=== PATIENT | female | born 1940 | race Caucasian/White ===

== ENCOUNTER 2016-09-10 16:46 | Inpatient (IN) ==
[2016-09-10] MEDS: Ipratropium/Albuterol Neb 3 ML IH SCH ×2 (18:55→21:36)
[2016-09-10] MEDS: Nystatin Cream 15 GM TUBE TP SCH (21:39)
[2016-09-10] MEDS: Cefdinir 300 MG CAPSULE PO SCH (21:39)
[2016-09-10] MEDS: Gabapentin 300 MG CAPSULE PO SCH (21:39)
--- NOTE | 2016-09-10 23:17 | Internal Med History&Physical ---
Date of Encounter: 09/10/16 Time of Encounter: 23:10 Assessment and Plan (1) Sepsis Current visit: No Status: Acute Improved continue Omnicef Qualifiers: Sepsis type: sepsis due to unspecified organism Qualified Code(s): A41.9 - Sepsis, unspecified organism (2) Unsteady gait Current visit: Yes Status: Acute We will get PT OT , bedrest and up with assistance as tolerated (3) Failure to thrive in adult Current visit: No Status: Chronic With general weakness and unsteady gait will continue to encourage activity consult PT, OT, social service, nutrition (4) DM type 2 (diabetes mellitus, type 2) Current visit: Yes Status: Acute Follow-up lab work to see a well-controlled continue proper diet Qualifiers: Diabetes mellitus complication status: with neurologic complications Diabetes mellitus complication detail: with unspecified neuropathy Diabetes mellitus chief information security officer insulin use: unspecified chief information security officer insulin use status Qualified Code(s): E11.40 - Type 2 diabetes mellitus with diabetic neuropathy, unspecified (5) CHF (congestive heart failure) Current visit: Yes Status: Acute Eyes shortness of breath currently is fair continue spironolactone, Lasix Qualifiers: Congestive heart failure type: unspecified congestive heart failure type Congestive heart failure chronicity: unspecified congestive heart failure chronicity Qualified Code(s): I50.9 - Heart failure, unspecified (6) Atrial fibrillation with slow ventricular response Current visit: No Status: Resolved Stable continue observing continue Plavix (7) Pancytopenia Current visit: No Status: Resolved Follow-up CBC (8) Dementia Current visit: Yes Status: Acute Dementia got worse with a septic shock and encephalopathy, continue Namenda, Qualifiers: Dementia type: unspecified type Dementia behavioral disturbance: with behavioral disturbance Qualified Code(s): F03.91 - Unspecified dementia with behavioral disturbance (9) Hallucinations Current visit: Yes Status: Acute History of dementia we will continue the olanzapine Internal Medicine - H&P: HPI Chief complaint: Generally weak with unsteady gait Admitted From: Hospital to Hospital Transfer Plans for Post Hospital Care: Home History of present illness: Ms. Irwin is a 76 year old female with a history of congestive heart failure coronary artery disease stents 2, asthma, fibrillation, INDIRA, osteoarthritis, or clots. presented after being discharged from [facility]. She was admitted there on the she was discharged on the with diagnosis of septic shock multi- organ failure, atrial fibrillation with slow ventricular response, pancytopenia , DM 2, coronary artery disease, failure to thrive adult. She was stabilized and evaluated by therapy and discharged here with Omnicef and rehabilitation her granddaughter who is with her and probably does not believe that she has dementia even though it is on her list. The patient was a poor historian, the granddaughter was only slightly. Information was mainly obtained from her records. Granddaughter did say she is basically back to her baseline size and order Mini-Mental Status exam so we can see where she is on Namenda. The patient denies any chest pain or shortness breath nausea vomiting diarrhea headache or dizziness this time. She reports feeling weak fatigue and family notices some blood in her stool with a history of hemorrhoids per granddaughter. Rest review of symptoms were essentially negative understanding the context dementia. Answer questions and addressed concerns. Past Med Surg Social Fam HX - Past Medical History Medical history: arthritis, asthma, atrial fibrillation (Slow ventricular response), cancer, CHF, coronary artery disease, DVT (History), dementia, diabetes, GERD, other (Failure to thrive, reported hemorrhoids, left eyelid legally blind, hard of hearing, pancytopenia, history of septic shock) Psychiatric history: anxiety, other (Hallucinations) - Past Surgical History Surgical History: angioplasty/stent, appendectomy, cataract (Bilateral), hip replacement (Bilateral), TYE/BSO, other (T&A) - Social History Smoking Status: Former smoker Alcohol use: none Drug use: other (Caffeine Mountain Dew to bottle today, Because caffeine is a stimulant and makes one feel a boost of energy by tapping into ones reserve energy, it can lead to anxiety and panic attacks. When used routiely, it interferes with deep sleep, so the reserve energy isn't being replaced effectively which leads to tiredness, depression, higher risk of infection. I recommend patients gives up daily use.) Current living situation: With Family Activity Level: Mostly sedentary - Family History Father Living Status: (Pancreas burst) Mother Living Status: (Pancreatic cancer) Internal Medicine - H&P: Meds Albuterol Sulfate [Albuterol Inhaler] 2 puff IH Q6HR 09/06/16 [History] Clopidogrel [Plavix] 75 mg PO DAILY 09/06/16 [History] Dexilant 60 unit PO DAILY 09/06/16 [History] Furosemide [Lasix] 40 mg PO DAILY 09/06/16 [History] Gabapentin [Neurontin] 300 mg PO TID 09/06/16 [History] Ipratropium/Albuterol Neb [Duoneb] 1 aerosol IH Q6H 09/06/16 [History] Ondansetron [Zuplenz] 4 mg PO QAM 09/06/16 [History] Spironolactone [Aldactone] 50 mg PO DAILY 09/06/16 [History] Cholecalciferol (Vitamin D3) [Vitamin D3] 1,000 unit PO DAILY 09/07/16 [History] Lactulose 10 gm PO DAILY 09/07/16 [History] Memantine [Namenda] 5 mg PO HS 09/07/16 [History] Nystatin Cream [Mycostatin Cream] 1 appl TP TID 09/07/16 [History] Omeprazole [PriLOSEC] 20 mg PO DAILY 09/07/16 [History] Cefdinir [Omnicef] 300 mg PO BID #4 capsule 09/10/16 [Rx] LORazepam [Ativan] 0.5 mg PO TID PRN #20 09/10/16 [Rx] OLANZapine [Zyprexa] 15 mg PO DAILY #20 09/10/16 [Rx] Oxycodone HCl 5 mg PO Q4H PRN #20 09/10/16 [Rx] Zinc Sulfate 220 mg PO DAILY #30 capsule 09/10/16 [Rx] Allergies Sulfa (Sulfonamide Antibiotics) Allergy (Verified 09/06/16 19:52) Anaphylaxis aspirin [ASA] Adverse Reaction (Verified 09/06/16 19:36) Nausea Erythromycin Base Adverse Reaction (Verified 09/06/16 19:52) Hives tramadol Adverse Reaction (Verified 09/06/16 19:36) Nausea All Systems PM: A 10-system review of systems was performed and is negative for pertinent findings except as documented above in the HPI. - Constitutional Vitals: Temp Pulse Resp BP Pulse Ox 97.7 F 93 16 128/64 96 09/10/16 18:37 09/10/16 18:37 09/10/16 18:57 09/10/16 18:37 09/10/16 18:57 - Head Head exam: Present: atraumatic, normocephalic - Eye Eye exam: Present: PERRL, conjuntiva pink, sclera anicteric Pupils: Present: PERRL Additional comments: Left eye appeared lazy, - Neck Neck exam general surgery: Present: supple, trachea midline. Absent: lymphadenopathy - Respiratory Respiratory exam: Present: CTAB. Absent: accessory muscle use, rales, rhonchi, wheezes - Cardiovascular Cardiovascular exam: Present: RRR, +S1, +S2. Absent: diastolic murmur, gallop, rubs, systolic murmur - GI/Abdominal GI/Abdominal exam: Present: normal bowel sounds, soft, no peritoneal signs. Absent: distended, tenderness - Extremities Exam Extremities exam: Present: warm. Absent: calf tenderness, cyanotic, pedal edema - Neurological Exam Neurological exam: Absent: facial droop, speech deficit Additional comments: Poor historian - Skin Skin exam: Present: dry, intact
[2016-09-11] MEDS: Ipratropium/Albuterol Neb 3 ML IH SCH ×4 (05:36→22:55)
[2016-09-11 06:47] LABS: Basophils % 0.2 %; Eosinophils # 0.1 K/mcL (0.0-0.6); Hematocrit 34.5 % (35.3-44.9); Hemoglobin 11.4 g/dL (11.5-15.4); Immature Granulocytes % 0.2 % (0-4); Lymphocytes % 36.1 %; Mean Corpuscular Hemoglobin 33.2 pg (28.0-33.3); Mean Corpuscular Volume 100.6 fL (83.0-100.0); Mean Platelet Volume 10.6 fL (9.4-12.4); Monocytes # 0.4 K/mcL (0.0-1.3); Monocytes % 9.2 %; Neutrophils # 2.1 K/mcL (1.6-8.9); Platelet Count 138 K/mcL (140-400); Red Blood Count 3.43 M/mcL (3.82-4.97); Red Cell Distribution Width 15.8 % (11.5-14.5); Segmented Neutrophils % 52.3 %
[2016-09-11 06:51] LABS: Lymphocytes # 1.4 K/mcL (0.6-4.6)
[2016-09-11 07:03] LABS: INR 1.4; Prothrombin Time 15.1 Seconds (9.4-12.1)
[2016-09-11 07:04] LABS: BUN/Creatinine Ratio 15 (6-26); Blood Urea Nitrogen 11 mg/dL (7-20); Calcium 8.5 mg/dL (8.6-10.8); Carbon Dioxide 18 mEq/L (19-29); Chloride 115 mEq/L (98-109); Glucose 79 mg/dL (70-99); Osmolality,Calculated 290 (280-300); Potassium 4.3 mEq/L (3.5-4.5); Sodium 141 mEq/L (136-145); eGFR For African Americans > 60 (> 60); eGFR For Non-African Americans > 60 (> 60)
[2016-09-11 07:06] LABS: Activated Partial Thrombo Time 33.5 Seconds (26.0-36.0)
[2016-09-11] MEDS ORDERED: Ondansetron ODT 4 MG TAB.RAPDIS PO SCH (09:00)
[2016-09-11] MEDS ORDERED: DEXILANT 60 MG PO SCH (09:00)
[2016-09-11] MEDS ORDERED: Ondansetron ODT 4 MG TAB.RAPDIS PO PRN (15:50)
[2016-09-11] MEDS: Ondansetron ODT 4 MG TAB.RAPDIS PO PRN ×2 (16:14→20:02)
[2016-09-11 17:04] LABS: Hemoglobin A1C 4.8 %
[2016-09-11] MEDS: Spironolactone 25 MG TABLET PO SCH (17:29)
[2016-09-11] MEDS: Furosemide 40 MG TABLET PO SCH (17:29)
[2016-09-11] MEDS: Gabapentin 300 MG CAPSULE PO SCH ×3 (17:32→20:08)
[2016-09-11] MEDS: OLANZapine 5 MG TAB.RAPDIS PO SCH (17:34)
[2016-09-11] MEDS: Zinc Sulfate 220 MG CAPSULE PO SCH (17:35)
[2016-09-11] MEDS: Cholecalciferol (D-3) 1,000 UNIT TABLET PO SCH (17:35)
[2016-09-11] MEDS: Cefdinir 300 MG CAPSULE PO SCH ×2 (17:36→20:09)
[2016-09-11] MEDS: Lactulose Oral Soln 20 GM/30 ML UDC PO SCH (17:36)
[2016-09-11] MEDS: Nystatin Cream 15 GM TUBE TP SCH ×3 (17:36→20:09)
[2016-09-11] MEDS: *HR* OxyCODONE Immed Rel 5 MG TABLET PO PRN (17:39)
[2016-09-12] MEDS: Ipratropium/Albuterol Neb 3 ML IH SCH ×2 (04:48→09:55)
[2016-09-12] MEDS: *HR* OxyCODONE Immed Rel 5 MG TABLET PO PRN ×2 (06:35→22:15)
[2016-09-12 06:57] LABS: Basophils % 0.3 %; Hematocrit 30.6 % (35.3-44.9); Hemoglobin 10.2 g/dL (11.5-15.4); Immature Granulocytes % 0.6 % (0-4); Lymphocytes # 1.3 K/mcL (0.6-4.6); Lymphocytes % 35.8 %; Mean Corpuscular HGB Conc 33.3 g/dL (31.6-35.5); Mean Corpuscular Hemoglobin 33.4 pg (28.0-33.3); Mean Corpuscular Volume 100.3 fL (83.0-100.0); Mean Platelet Volume 10.5 fL (9.4-12.4); Monocytes # 0.4 K/mcL (0.0-1.3); Monocytes % 11.7 %; Neutrophils # 1.9 K/mcL (1.6-8.9); Platelet Count 139 K/mcL (140-400); Red Blood Count 3.05 M/mcL (3.82-4.97); Red Cell Distribution Width 15.9 % (11.5-14.5); Segmented Neutrophils % 51.6 %
[2016-09-12 07:00] LABS: INR 1.5; Prothrombin Time 16.1 Seconds (9.4-12.1)
[2016-09-12 07:03] LABS: Activated Partial Thrombo Time 32.7 Seconds (26.0-36.0)
[2016-09-12 07:09] LABS: BUN/Creatinine Ratio 14 (6-26); Blood Urea Nitrogen 11 mg/dL (7-20); Calcium 8.2 mg/dL (8.6-10.8); Carbon Dioxide 19 mEq/L (19-29); Chloride 114 mEq/L (98-109); Glucose 85 mg/dL (70-99); Osmolality,Calculated 291 (280-300); Potassium 3.8 mEq/L (3.5-4.5); Sodium 141 mEq/L (136-145); eGFR For African Americans > 60 (> 60); eGFR For Non-African Americans > 60 (> 60)
[2016-09-12] MEDS: Lactulose Oral Soln 20 GM/30 ML UDC PO SCH (09:28)
[2016-09-12] MEDS: Nystatin Cream 15 GM TUBE TP SCH ×3 (09:29→22:16)
[2016-09-12] MEDS: Gabapentin 300 MG CAPSULE PO SCH ×3 (09:30→22:16)
[2016-09-12] MEDS: Cefdinir 300 MG CAPSULE PO SCH ×2 (09:30→22:15)
[2016-09-12] MEDS: Spironolactone 25 MG TABLET PO SCH (09:32)
[2016-09-12] MEDS: Furosemide 40 MG TABLET PO SCH (09:32)
[2016-09-12] MEDS: OLANZapine 5 MG TAB.RAPDIS PO SCH (09:34)
[2016-09-12] MEDS: Zinc Sulfate 220 MG CAPSULE PO SCH (09:51)
[2016-09-12] MEDS: Cholecalciferol (D-3) 1,000 UNIT TABLET PO SCH (09:52)
[2016-09-12] MEDS: Ondansetron ODT 4 MG TAB.RAPDIS PO PRN (14:51)
[2016-09-12] MEDS: *HR* LORazepam 0.5 MG TABLET PO PRN (16:27)
[2016-09-13] MEDS ORDERED: *HR* Digoxin 0.25 MG TABLET PO STA (06:57)
[2016-09-13 07:25] LABS: Basophils % 0.1 %; Hematocrit 36.6 % (35.3-44.9); Hemoglobin 11.9 g/dL (11.5-15.4); Immature Granulocytes % 0.7 % (0-4); Lymphocytes # 2.2 K/mcL (0.6-4.6); Lymphocytes % 23.6 %; Mean Corpuscular HGB Conc 32.5 g/dL (31.6-35.5); Mean Corpuscular Hemoglobin 33.4 pg (28.0-33.3); Mean Corpuscular Volume 102.8 fL (83.0-100.0); Mean Platelet Volume 10.4 fL (9.4-12.4); Monocytes # 1.3 K/mcL (0.0-1.3); Monocytes % 13.7 %; Neutrophils # 5.9 K/mcL (1.6-8.9); Platelet Count 190 K/mcL (140-400); Red Blood Count 3.56 M/mcL (3.82-4.97); Red Cell Distribution Width 17.2 % (11.5-14.5); Segmented Neutrophils % 61.9 %
[2016-09-13] MEDS ORDERED: *HR* Propranolol 1 MG/ML VIAL IVP ONE (07:47)
[2016-09-13] MEDS ORDERED: *HR* Adenosine 6 MG/2 ML VIAL IVP ONE (07:48)
[2016-09-13] MEDS ORDERED: 0.9 % Sodium Chloride 1,000 ML ONE (08:26)
--- NOTE | 2016-09-13 10:16 | Internal Med Progress Note ---
Date of Encounter: 09/13/16 Time of Encounter: 10:00 - Assessment and plan (1) Sepsis Current Visit: No Status: Acute Assessment and plan: September 13. Review of records show her pro-calcitonin was 1.32 which is in the intermediate range on 09/08/2016. Her WBC was subnormal but is now returned to normal range. There has not been documented a left shift on the differential. I will discontinue Ceftin. Qualifiers: Sepsis type: sepsis due to unspecified organism Qualified Code(s): A41.9 - Sepsis, unspecified organism (2) DM type 2 (diabetes mellitus, type 2) Current Visit: Yes Status: Acute Assessment and plan: September 13. Uncertainty of accuracy of diagnosis since hemoglobin A1c is 4.8% . Qualifiers: Diabetes mellitus complication status: with neurologic complications Diabetes mellitus complication detail: with unspecified neuropathy Diabetes mellitus shelter insulin use: unspecified director long term care insulin use status Qualified Code(s): E11.40 - Type 2 diabetes mellitus with diabetic neuropathy, unspecified (3) Atrial fibrillation Current Visit: Yes Status: Chronic Assessment and plan: September 13. She has now converted to NSR. We will start low-dose Toprol-XL. Qualifiers: Atrial fibrillation type: paroxysmal Qualified Code(s): I48.0 - Paroxysmal atrial fibrillation (4) Chronic low back pain Current Visit: Yes Status: Chronic Assessment and plan: September 13. Will start low-dose OxyContin and continue with oxycodone IR when necessary Qualifiers: Back pain laterality: unspecified Qualified Code(s): M54.5 - Low back pain ; G89.29 - Other chronic pain (5) Hypomagnesemia Current Visit: Yes Status: Acute Assessment and plan: September 13. Magnesium level was 1.2 in 09/08/2016. We will recheck in a.m. - Subjective Interval history: September 13. She had SVT earlier this morning with some complaints of chest heaviness when her heart rate was approximately 170. She received Lanoxin, Adenocard, and Inderal. She is now in normal sinus rhythm. She has history of atrial fibrillation and had an echocardiogram done at [facility] prior to transfer to [facility] swing bed. I reviewed the results. She has minimal dyspnea at this time. She does complain of chronic low back pain and states she has been on oxycodone 3-4 times daily at home prior to hospitalizations. - Constitutional Vitals: Temp Pulse Resp BP Pulse Ox 98.5 F 109 28 133/9 94 L 09/13/16 06:44 09/13/16 08:31 09/13/16 06:44 09/13/16 08:31 09/13/16 08:31 Exam: She is resting comfortably in bed and appears in no acute distress. Heart is regular rate approximate 104/m now. Lungs show no wheezes or crackles. Extremities show no edema. She seems to be a fair to good historian. Internal Medicine: Result - Labs CBC & Chem 7: 09/13/16 07:19 09/12/16 05:13 Labs: Short CBC 09/13/16 Range/Units 07:19 WBC 9.5 D (4.3-11.1) K/mcL Hgb 11.9 D (11.5-15.4) g/dL Hct 36.6 (35.3-44.9) % Plt Count 190 (140-400) K/mcL Neutrophils # 5.9 (1.6-8.9) K/mcL - ABG Interpretation ABG results: PT/INR, D-dimer PT 16.1 Seconds (9.4-12.1) H 09/12/16 05:13 - Impressions Impressions Chest X-Ray 09/13/16 08:34 IMPRESSION: Poorly expanded lungs. No definite acute abnormality. D/ / Vik Mclain MD / Vik Mclain MD Interpreting Provider: Vik Mclain MD Consult Discharge Plan - Plan Referrals: NO,PCP [Primary Care Provider] - 1 week
[2016-09-13] MEDS ORDERED: *HR* OxyCODONE ER (12 HR) 10 MG TABLET PO SCH (10:55)
--- NOTE | 2016-09-13 11:29 | Electrocardiograph Report ---
[facility] Test Date: 2016-09-13 Pat Name: Chante Irwin Department: [id number] Room: [facility] Gender: F Emblem Fuser Tender: [id number] : 1940 Requested By: Oleg Khan Order Number: [id number] Reading MD: Seble Edmond Measurements Intervals [place] Rate: 172 P: SC: 0 QRS: 23 QRSD: 66 T: 256 QT: 241 QTc: 334 Interpretive Statements SUPRAVENTRICULAR TACHYCARDIA NONSPECIFIC ST \T\ T-WAVE ABNORMALITY Electronically Signed On 09-13-16 11:28:15 EST by Seble Edmond
[2016-09-13] MEDS: Lactulose Oral Soln 20 GM/30 ML UDC PO SCH (11:57)
[2016-09-13] MEDS: Nystatin Cream 15 GM TUBE TP SCH ×3 (11:57→20:50)
[2016-09-13] MEDS: Furosemide 40 MG TABLET PO SCH (12:30)
[2016-09-13] MEDS: Cholecalciferol (D-3) 1,000 UNIT TABLET PO SCH (12:37)
[2016-09-13] MEDS: OLANZapine 5 MG TAB.RAPDIS PO SCH (12:37)
[2016-09-13] MEDS: Gabapentin 100 MG CAPSULE PO SCH ×2 (17:37→20:49)
[2016-09-13] MEDS: *HR* OxyCODONE ER (12 HR) 10 MG TABLET PO SCH (20:50)
[2016-09-14] MEDS: *HR* LORazepam 0.5 MG TABLET PO PRN (04:20)
[2016-09-14 07:51] LABS: Basophils % 0.2 %; Eosinophils # 0.1 K/mcL (0.0-0.6); Eosinophils % 2.8 %; Hematocrit 34.4 % (35.3-44.9); Hemoglobin 11.1 g/dL (11.5-15.4); Immature Granulocytes % 0.6 % (0-4); Lymphocytes # 1.5 K/mcL (0.6-4.6); Lymphocytes % 31.2 %; Mean Corpuscular HGB Conc 32.3 g/dL (31.6-35.5); Mean Corpuscular Hemoglobin 33.2 pg (28.0-33.3); Mean Platelet Volume 10.3 fL (9.4-12.4); Monocytes # 0.6 K/mcL (0.0-1.3); Monocytes % 11.6 %; Neutrophils # 2.5 K/mcL (1.6-8.9); Platelet Count 112 K/mcL (140-400); Red Blood Count 3.34 M/mcL (3.82-4.97); Red Cell Distribution Width 17.2 % (11.5-14.5); Segmented Neutrophils % 53.6 %
[2016-09-14] MEDS: Furosemide 40 MG TABLET PO SCH (07:55)
[2016-09-14] MEDS: Spironolactone 25 MG TABLET PO SCH (07:55)
[2016-09-14] MEDS: *HR* OxyCODONE ER (12 HR) 10 MG TABLET PO SCH ×2 (07:56→22:09)
[2016-09-14] MEDS: Gabapentin 100 MG CAPSULE PO SCH ×3 (07:56→22:08)
[2016-09-14] MEDS: OLANZapine 5 MG TAB.RAPDIS PO SCH (07:57)
[2016-09-14] MEDS: Lactulose Oral Soln 20 GM/30 ML UDC PO SCH (08:07)
[2016-09-14] MEDS: Cholecalciferol (D-3) 1,000 UNIT TABLET PO SCH (08:08)
[2016-09-14 09:08] LABS: BUN/Creatinine Ratio 16 (6-26); Blood Urea Nitrogen 14 mg/dL (7-20); Calcium 8.1 mg/dL (8.6-10.8); Carbon Dioxide 20 mEq/L (19-29); Chloride 108 mEq/L (98-109); Glucose 69 mg/dL (70-99); Magnesium 1.3 mg/dL (1.6-2.6); Osmolality,Calculated 283 (280-300); Potassium 4.4 mEq/L (3.5-4.5); Sodium 137 mEq/L (136-145); eGFR For African Americans > 60 (> 60); eGFR For Non-African Americans > 60 (> 60)
[2016-09-14] MEDS: Nystatin Cream 15 GM TUBE TP SCH ×3 (16:16→22:09)
--- NOTE | 2016-09-14 18:00 | Internal Med Progress Note ---
Date of Encounter: 09/14/16 Time of Encounter: 17:50 - Assessment and plan (1) Sepsis Current Visit: No Status: Acute Assessment and plan: September 13. Review of records show her pro-calcitonin was 1.32 which is in the intermediate range on 09/08/2016. Her WBC was subnormal but is now returned to normal range. There has not been documented a left shift on the differential. I will discontinue Ceftin. September 14. Remains stable off antibiotics. WBC was normal with no left shift seen on differential. Qualifiers: Sepsis type: sepsis due to unspecified organism Qualified Code(s): A41.9 - Sepsis, unspecified organism (2) DM type 2 (diabetes mellitus, type 2) Current Visit: Yes Status: Acute Assessment and plan: September 13. Uncertainty of accuracy of diagnosis since hemoglobin A1c is 4.8% . Qualifiers: Diabetes mellitus complication status: with neurologic complications Diabetes mellitus complication detail: with unspecified neuropathy Diabetes mellitus dozer operator insulin use: unspecified dozer operator insulin use status Qualified Code(s): E11.40 - Type 2 diabetes mellitus with diabetic neuropathy, unspecified (3) Atrial fibrillation Current Visit: Yes Status: Chronic Assessment and plan: September 13. She has now converted to NSR. We will start low-dose Toprol-XL. September 14. Remains in NSR. Continue Toprol. Qualifiers: Atrial fibrillation type: paroxysmal Qualified Code(s): I48.0 - Paroxysmal atrial fibrillation (4) Chronic low back pain Current Visit: Yes Status: Chronic Assessment and plan: September 13. Will start low-dose OxyContin and continue with oxycodone IR when necessary September 14. Continue with oxycodone IR and will give scheduled Tylenol. Qualifiers: Back pain laterality: unspecified Qualified Code(s): M54.5 - Low back pain ; G89.29 - Other chronic pain (5) Hypomagnesemia Current Visit: Yes Status: Acute Assessment and plan: September 13. Magnesium level was 1.2 in 09/08/2016. We will recheck in a.m. September 14. Magnesium level was low at 1.3. Will order supplemental magnesium. - Subjective Interval history: September 13. She had SVT earlier this morning with some complaints of chest heaviness when her heart rate was approximately 170. She received Lanoxin, Adenocard, and Inderal. She is now in normal sinus rhythm. She has history of atrial fibrillation and had an echocardiogram done at [facility] prior to transfer to [facility] swing bed. I reviewed the results. She has minimal dyspnea at this time. She does complain of chronic low back pain and states she has been on oxycodone 3-4 times daily at home prior to hospitalizations. September 14. She has no new complaints. She has had no recurrence of SVT. She became confused after using OxyContin so it was discontinued. - Constitutional Vitals: Temp Pulse Resp BP Pulse Ox 98.4 F 99 17 132/78 99 09/14/16 06:50 09/14/16 08:09 09/14/16 08:09 09/14/16 08:09 09/14/16 08:09 Exam: She is lying in bed resting comfortable. Her heart is regular rate 108/m. Lungs are clear anteriorly. Extremities show trace edema bilaterally. I note weight increased to 62.505 kg. I reviewed her medications and lab results. Internal Medicine: Result - Labs CBC & Chem 7: 09/14/16 07:31 09/14/16 07:31 Labs: Short CBC 09/14/16 Range/Units 07:31 WBC 4.7 D (4.3-11.1) K/mcL Hgb 11.1 L (11.5-15.4) g/dL Hct 34.4 L (35.3-44.9) % Plt Count 112 L (140-400) K/mcL Neutrophils # 2.5 (1.6-8.9) K/mcL BMP 09/14/16 07:31 Sodium 137 Potassium 4.4 Chloride 108 Carbon Dioxide 20 BUN 14 Creatinine 0.86 Glucose 69 L Calcium 8.1 L - ABG Interpretation ABG results: PT/INR, D-dimer PT 16.1 Seconds (9.4-12.1) H 09/12/16 05:13 - VTE Documentation of Mechanical Device: Intermittent pneumatic compression device Consult Discharge Plan - Plan Referrals: NO,PCP [Primary Care Provider] - 1 week
[2016-09-14] MEDS: *HR* OxyCODONE Immed Rel 5 MG TABLET PO PRN (18:56)
[2016-09-14] MEDS: Metoprolol XL (24 HR) Succ 25 MG TAB.ER.24H PO SCH (18:56)
[2016-09-14] MEDS: Magnesium Oxide 400 MG TABLET PO SCH (22:07)
[2016-09-15] MEDS: OLANZapine 5 MG TAB.RAPDIS PO SCH (08:04)
[2016-09-15] MEDS: Gabapentin 100 MG CAPSULE PO SCH ×3 (08:04→21:26)
[2016-09-15] MEDS: Cholecalciferol (D-3) 1,000 UNIT TABLET PO SCH (08:05)
[2016-09-15] MEDS: Bumetanide 1 MG TABLET PO SCH (08:05)
[2016-09-15] MEDS: Ondansetron ODT 4 MG TAB.RAPDIS PO PRN ×2 (08:05→17:15)
[2016-09-15] MEDS: *HR* OxyCODONE ER (12 HR) 10 MG TABLET PO SCH ×2 (08:06→21:27)
[2016-09-15] MEDS: Magnesium Oxide 400 MG TABLET PO SCH ×2 (08:06→21:28)
[2016-09-15] MEDS: Spironolactone 25 MG TABLET PO SCH (08:06)
[2016-09-15] MEDS: Metoprolol XL (24 HR) Succ 25 MG TAB.ER.24H PO SCH (08:06)
[2016-09-15] MEDS: Lactulose Oral Soln 20 GM/30 ML UDC PO SCH (08:12)
[2016-09-15] MEDS: *HR* OxyCODONE Immed Rel 5 MG TABLET PO PRN (13:17)
[2016-09-15] MEDS: Nystatin Cream 15 GM TUBE TP SCH ×3 (13:44→21:47)
[2016-09-15] MEDS: *HR* LORazepam 0.5 MG TABLET PO PRN (23:21)
[2016-09-16] MEDS: Gabapentin 100 MG CAPSULE PO SCH ×3 (08:17→21:12)
[2016-09-16] MEDS: Bumetanide 1 MG TABLET PO SCH (08:17)
[2016-09-16] MEDS: Metoprolol XL (24 HR) Succ 25 MG TAB.ER.24H PO SCH (08:18)
[2016-09-16] MEDS: *HR* OxyCODONE ER (12 HR) 10 MG TABLET PO SCH (08:18)
[2016-09-16] MEDS: Spironolactone 25 MG TABLET PO SCH (08:18)
[2016-09-16] MEDS: OLANZapine 5 MG TAB.RAPDIS PO SCH (08:19)
[2016-09-16] MEDS: Ondansetron ODT 4 MG TAB.RAPDIS PO PRN (08:20)
[2016-09-16] MEDS: Magnesium Oxide 400 MG TABLET PO SCH ×2 (08:20→21:12)
[2016-09-16] MEDS: Cholecalciferol (D-3) 1,000 UNIT TABLET PO SCH (08:20)
[2016-09-16] MEDS: Lactulose Oral Soln 20 GM/30 ML UDC PO SCH (08:27)
[2016-09-16] MEDS: Nystatin Cream 15 GM TUBE TP SCH ×3 (11:13→21:12)
--- NOTE | 2016-09-16 14:26 | Internal Med Progress Note ---
Date of Encounter: 09/16/16 Time of Encounter: 14:15 - Assessment and plan (1) Sepsis Current Visit: No Status: Acute Assessment and plan: September 13. Review of records show her pro-calcitonin was 1.32 which is in the intermediate range on 09/08/2016. Her WBC was subnormal but is now returned to normal range. There has not been documented a left shift on the differential. I will discontinue Ceftin. September 14. Remains stable off antibiotics. WBC was normal with no left shift seen on differential. September 16. We will recheck CBC in a.m. Qualifiers: Sepsis type: sepsis due to unspecified organism Qualified Code(s): A41.9 - Sepsis, unspecified organism (2) DM type 2 (diabetes mellitus, type 2) Current Visit: Yes Status: Acute Assessment and plan: September 13. Uncertainty of accuracy of diagnosis since hemoglobin A1c is 4.8% . Qualifiers: Diabetes mellitus complication status: with neurologic complications Diabetes mellitus complication detail: with unspecified neuropathy Diabetes mellitus long-term insulin use: unspecified long-term insulin use status Qualified Code(s): E11.40 - Type 2 diabetes mellitus with diabetic neuropathy, unspecified (3) Atrial fibrillation Current Visit: Yes Status: Chronic Assessment and plan: September 13. She has now converted to NSR. We will start low-dose Toprol-XL. September 14. Remains in NSR. Continue Toprol. September 16. We will increase Toprol dose to improve blood pressure Qualifiers: Atrial fibrillation type: paroxysmal Qualified Code(s): I48.0 - Paroxysmal atrial fibrillation (4) Chronic low back pain Current Visit: Yes Status: Chronic Assessment and plan: September 13. Will start low-dose OxyContin and continue with oxycodone IR when necessary September 14. Continue with oxycodone IR and will give scheduled Tylenol. September 16. We will discontinue OxyContin and continue scheduled Tylenol and prn oxycodone IR Qualifiers: Back pain laterality: unspecified Qualified Code(s): M54.5 - Low back pain ; G89.29 - Other chronic pain (5) Hypomagnesemia Current Visit: Yes Status: Acute Assessment and plan: September 13. Magnesium level was 1.2 in 09/08/2016. We will recheck in a.m. September 14. Magnesium level was low at 1.3. Will order supplemental magnesium. September 16. We will check magnesium level and other labs in a.m. (6) Lethargy Current Visit: Yes Status: Acute Assessment and plan: September 16. Will decrease Zyprexa and discontinue OxyContin. - Subjective Interval history: September 13. She had SVT earlier this morning with some complaints of chest heaviness when her heart rate was approximately 170. She received Lanoxin, Adenocard, and Inderal. She is now in normal sinus rhythm. She has history of atrial fibrillation and had an echocardiogram done at [facility] prior to transfer to [facility] bed. I reviewed the results. She has minimal dyspnea at this time. She does complain of chronic low back pain and states she has been on oxycodone 3-4 times daily at home prior to hospitalizations. September 14. She has no new complaints. She has had no recurrence of SVT. She became confused after using OxyContin so it was discontinued. September 16. She has no new complaints. The staff reports she becomes more lethargic on a predictable basis as the day wears on. She denies significant pain or dyspnea at the present time. - Constitutional Vitals: Temp Pulse Resp BP Pulse Ox 97.1 F L 81 18 133/61 93 L 09/16/16 07:01 09/16/16 07:01 09/16/16 07:01 09/16/16 07:01 09/16/16 07:01 Exam: She is lethargic but does awaken and answer questions appropriately. Her heart is regular rate approximately 88/m. Lungs are clear anteriorly. Extremities show 1-2 + edema bilaterally. Reviewed her medications and lab results. Internal Medicine: Result - Labs CBC & Chem 7: 09/14/16 07:31 09/14/16 07:31 - ABG Interpretation ABG results: PT/INR, D-dimer PT 16.1 Seconds (9.4-12.1) H 09/12/16 05:13 - VTE Documentation of Mechanical Device: Intermittent pneumatic compression device Consult Discharge Plan - Plan Referrals: NO,PCP [Primary Care Provider] - 1 week
[2016-09-16] MEDS ORDERED: Ondansetron 4 MG/2 ML VIAL IVP PRN (14:31)
[2016-09-16] MEDS: *HR* OxyCODONE Immed Rel 5 MG TABLET PO PRN (21:13)
[2016-09-17 06:37] LABS: Basophils % 0.3 %; Hemoglobin 10.5 g/dL (11.5-15.4); Immature Granulocytes % 0.3 % (0-4); Lymphocytes % 30.7 %; Mean Corpuscular HGB Conc 33.9 g/dL (31.6-35.5); Mean Corpuscular Hemoglobin 34.4 pg (28.0-33.3); Mean Corpuscular Volume 101.6 fL (83.0-100.0); Mean Platelet Volume 10.2 fL (9.4-12.4); Monocytes # 0.4 K/mcL (0.0-1.3); Monocytes % 11.6 %; Neutrophils # 1.9 K/mcL (1.6-8.9); Platelet Count 100 K/mcL (140-400); Red Blood Count 3.05 M/mcL (3.82-4.97); Red Cell Distribution Width 17.1 % (11.5-14.5); Segmented Neutrophils % 57.1 %
[2016-09-17 06:57] LABS: BUN/Creatinine Ratio 11 (6-26); Blood Urea Nitrogen 10 mg/dL (7-20); Calcium 7.7 mg/dL (8.6-10.8); Carbon Dioxide 30 mEq/L (19-29); Chloride 102 mEq/L (98-109); Glucose 94 mg/dL (70-99); Magnesium 1.2 mg/dL (1.6-2.6); Osmolality,Calculated 287 (280-300); Potassium 3.3 mEq/L (3.5-4.5); Sodium 139 mEq/L (136-145); eGFR For African Americans > 60 (> 60); eGFR For Non-African Americans > 60 (> 60)
[2016-09-17] MEDS: Lactulose Oral Soln 20 GM/30 ML UDC PO SCH (11:11)
[2016-09-17] MEDS: Bumetanide 1 MG TABLET PO SCH (11:12)
[2016-09-17] MEDS: Spironolactone 25 MG TABLET PO SCH (11:13)
[2016-09-17] MEDS: Cholecalciferol (D-3) 1,000 UNIT TABLET PO SCH (11:13)
[2016-09-17] MEDS: OLANZapine 5 MG TAB.RAPDIS PO SCH (11:14)
[2016-09-17] MEDS: Magnesium Oxide 400 MG TABLET PO SCH ×2 (11:14→23:13)
[2016-09-17] MEDS: Metoprolol XL (24 HR) Succ 25 MG TAB.ER.24H PO SCH (11:15)
[2016-09-17] MEDS: Gabapentin 100 MG CAPSULE PO SCH ×3 (11:15→23:13)
[2016-09-17] MEDS: Nystatin Cream 15 GM TUBE TP SCH ×3 (11:20→23:22)
[2016-09-17] MEDS: *HR* OxyCODONE Immed Rel 5 MG TABLET PO PRN ×2 (17:19→23:20)
[2016-09-18] MEDS: Gabapentin 100 MG CAPSULE PO SCH ×3 (10:31→21:06)
[2016-09-18] MEDS: Magnesium Oxide 400 MG TABLET PO SCH ×2 (10:31→21:06)
[2016-09-18] MEDS: Cholecalciferol (D-3) 1,000 UNIT TABLET PO SCH (10:32)
[2016-09-18] MEDS: OLANZapine 5 MG TAB.RAPDIS PO SCH (10:33)
[2016-09-18] MEDS: Bumetanide 1 MG TABLET PO SCH (10:34)
[2016-09-18] MEDS: Metoprolol XL (24 HR) Succ 25 MG TAB.ER.24H PO SCH (10:36)
[2016-09-18] MEDS: Spironolactone 25 MG TABLET PO SCH (10:36)
[2016-09-18] MEDS: Lactulose Oral Soln 20 GM/30 ML UDC PO SCH (10:37)
[2016-09-18] MEDS: Nystatin Cream 15 GM TUBE TP SCH ×3 (10:39→21:17)
--- NOTE | 2016-09-18 12:10 | Internal Med Progress Note ---
Date of Encounter: 09/18/16 Time of Encounter: 12:00 - Assessment and plan (1) Sepsis Current Visit: No Status: Acute Assessment and plan: September 13. Review of records show her pro-calcitonin was 1.32 which is in the intermediate range on 09/08/2016. Her WBC was subnormal but is now returned to normal range. There has not been documented a left shift on the differential. I will discontinue Ceftin. September 14. Remains stable off antibiotics. WBC was normal with no left shift seen on differential. September 16. We will recheck CBC in a.m. September 18. WBC was subnormal yesterday. We will recheck labs in a.m.. Qualifiers: Sepsis type: sepsis due to unspecified organism Qualified Code(s): A41.9 - Sepsis, unspecified organism (2) DM type 2 (diabetes mellitus, type 2) Current Visit: Yes Status: Acute Assessment and plan: September 13. Uncertainty of accuracy of diagnosis since hemoglobin A1c is 4.8% . Qualifiers: Diabetes mellitus complication status: with neurologic complications Diabetes mellitus complication detail: with unspecified neuropathy Diabetes mellitus intermediate frame tender insulin use: unspecified intermediate frame tender insulin use status Qualified Code(s): E11.40 - Type 2 diabetes mellitus with diabetic neuropathy, unspecified (3) Atrial fibrillation Current Visit: Yes Status: Chronic Assessment and plan: September 13. She has now converted to NSR. We will start low-dose Toprol-XL. September 14. Remains in NSR. Continue Toprol. September 16. We will increase Toprol dose to improve blood pressure September 18. Continue higher dose Toprol. Qualifiers: Atrial fibrillation type: paroxysmal Qualified Code(s): I48.0 - Paroxysmal atrial fibrillation (4) Chronic low back pain Current Visit: Yes Status: Chronic Assessment and plan: September 13. Will start low-dose OxyContin and continue with oxycodone IR when necessary September 14. Continue with oxycodone IR and will give scheduled Tylenol. September 16. We will discontinue OxyContin and continue scheduled Tylenol and prn oxycodone IR September 18. Continue scheduled Tylenol and prn oxycodone IR Qualifiers: Back pain laterality: unspecified Qualified Code(s): M54.5 - Low back pain ; G89.29 - Other chronic pain (5) Hypomagnesemia Current Visit: Yes Status: Acute Assessment and plan: September 13. Magnesium level was 1.2 in 09/08/2016. We will recheck in a.m. September 14. Magnesium level was low at 1.3. Will order supplemental magnesium. September 16. We will check magnesium level and other labs in a.m. September 18. We will recheck magnesium level in a.m. (6) Lethargy Current Visit: Yes Status: Acute Assessment and plan: September 16. Will decrease Zyprexa and discontinue OxyContin. September 18. Significantly improved. (7) Hypokalemia Current Visit: Yes Status: Acute Assessment and plan: September 18. Will give supplemental potassium and recheck labs in a.m. (8) Anemia Current Visit: Yes Status: Acute Assessment and plan: September 18. We will check anemia testing in a.m. Qualifiers: Anemia type: unspecified type Qualified Code(s): D64.9 - Anemia, unspecified - Subjective Interval history: September 13. She had SVT earlier this morning with some complaints of chest heaviness when her heart rate was approximately 170. She received Lanoxin, Adenocard, and Inderal. She is now in normal sinus rhythm. She has history of atrial fibrillation and had an echocardiogram done at [facility] prior to transfer to [facility] bed. I reviewed the results. She has minimal dyspnea at this time. She does complain of chronic low back pain and states she has been on oxycodone 3-4 times daily at home prior to hospitalizations. September 14. She has no new complaints. She has had no recurrence of SVT. She became confused after using OxyContin so it was discontinued. September 16. She has no new complaints. The staff reports she becomes more lethargic on a predictable basis as the day wears on. She denies significant pain or dyspnea at the present time. September 18. She has no new complaints - Constitutional Vitals: Temp Pulse Resp BP Pulse Ox 99.0 F 82 16 101/68 93 L 09/18/16 07:21 09/18/16 07:21 09/18/16 07:21 09/18/16 07:21 09/18/16 07:21 Exam: She is lying in bed resting comfortable. She is more awake and responsive. Her affect is bright and cheerful. I reviewed her medications and lab results. Internal Medicine: Result - Labs CBC & Chem 7: 09/17/16 06:04 09/17/16 06:04 - ABG Interpretation ABG results: PT/INR, D-dimer PT 16.1 Seconds (9.4-12.1) H 09/12/16 05:13 - VTE Documentation of Mechanical Device: Intermittent pneumatic compression device Consult Discharge Plan - Plan Referrals: NO,PCP [Primary Care Provider] - 1 week
[2016-09-18] MEDS: Potassium Chloride Elixir 20 MEQ/15 ML UDC PO SCH (21:05)
[2016-09-18] MEDS: *HR* OxyCODONE Immed Rel 5 MG TABLET PO PRN (21:07)
[2016-09-19 06:08] LABS: Basophils % 0.2 %; Hematocrit 29.5 % (35.3-44.9); Hemoglobin 9.9 g/dL (11.5-15.4); Immature Granulocytes % 0.2 % (0-4); Lymphocytes # 1.4 K/mcL (0.6-4.6); Lymphocytes % 29.3 %; Mean Corpuscular HGB Conc 33.6 g/dL (31.6-35.5); Mean Corpuscular Hemoglobin 34.4 pg (28.0-33.3); Mean Corpuscular Volume 102.4 fL (83.0-100.0); Mean Platelet Volume 10.5 fL (9.4-12.4); Monocytes # 0.6 K/mcL (0.0-1.3); Monocytes % 12.1 %; Neutrophils # 2.7 K/mcL (1.6-8.9); Red Blood Count 2.88 M/mcL (3.82-4.97); Red Cell Distribution Width 17.5 % (11.5-14.5); Segmented Neutrophils % 58.2 %
[2016-09-19 06:10] LABS: Platelet Count 95 K/mcL (140-400)
[2016-09-19 06:31] LABS: BUN/Creatinine Ratio 12 (6-26); Blood Urea Nitrogen 10 mg/dL (7-20); Calcium 7.7 mg/dL (8.6-10.8); Carbon Dioxide 33 mEq/L (19-29); Chloride 100 mEq/L (98-109); Glucose 87 mg/dL (70-99); Magnesium 1.2 mg/dL (1.6-2.6); Osmolality,Calculated 288 (280-300); Potassium 3.4 mEq/L (3.5-4.5); Sodium 140 mEq/L (136-145); Uric Acid 7.4 mg/dL (2.6-6.0); eGFR For African Americans > 60 (> 60); eGFR For Non-African Americans > 60 (> 60)
[2016-09-19] MEDS ORDERED: Potassium Chloride Elixir 20 MEQ/15 ML UDC PO SCH (08:00)
[2016-09-19 08:19] LABS: % Iron Saturation 95 % (15-50); Iron 121 mcg/dL (50-170); Transferrin 91 mg/dL (180-382)
[2016-09-19] MEDS: Potassium Chloride Elixir 20 MEQ/15 ML UDC PO SCH ×2 (08:27→17:10)
[2016-09-19] MEDS: Cholecalciferol (D-3) 1,000 UNIT TABLET PO SCH (08:28)
[2016-09-19] MEDS: Gabapentin 100 MG CAPSULE PO SCH ×3 (08:28→22:15)
[2016-09-19] MEDS: Metoprolol XL (24 HR) Succ 25 MG TAB.ER.24H PO SCH (08:28)
[2016-09-19] MEDS: Spironolactone 25 MG TABLET PO SCH (08:29)
[2016-09-19] MEDS: Bumetanide 1 MG TABLET PO SCH (08:29)
[2016-09-19] MEDS: Magnesium Oxide 400 MG TABLET PO SCH ×2 (08:29→22:14)
[2016-09-19] MEDS: Lactulose Oral Soln 20 GM/30 ML UDC PO SCH (08:29)
[2016-09-19] MEDS: Nystatin Cream 15 GM TUBE TP SCH ×3 (08:30→22:16)
[2016-09-19] MEDS: OLANZapine 5 MG TAB.RAPDIS PO SCH (08:30)
[2016-09-19 08:41] LABS: Ferritin 298 ng/ml (5-204)
[2016-09-19] MEDS: *HR* OxyCODONE Immed Rel 5 MG TABLET PO PRN ×3 (08:42→22:14)
[2016-09-19 10:05] LABS: Folate 5.7 ng/mL (7.0-31.4)
[2016-09-20] MEDS: OLANZapine 5 MG TAB.RAPDIS PO SCH (09:32)
[2016-09-20] MEDS: Metoprolol XL (24 HR) Succ 25 MG TAB.ER.24H PO SCH (09:32)
[2016-09-20] MEDS: Cholecalciferol (D-3) 1,000 UNIT TABLET PO SCH (09:32)
[2016-09-20] MEDS: Spironolactone 25 MG TABLET PO SCH (09:32)
[2016-09-20] MEDS: Gabapentin 100 MG CAPSULE PO SCH ×3 (09:33→20:34)
[2016-09-20] MEDS: Magnesium Oxide 400 MG TABLET PO SCH ×2 (09:34→20:34)
[2016-09-20] MEDS: Bumetanide 1 MG TABLET PO SCH (09:35)
[2016-09-20] MEDS: Potassium Chloride Elixir 20 MEQ/15 ML UDC PO SCH ×2 (09:35→18:22)
[2016-09-20] MEDS: Lactulose Oral Soln 20 GM/30 ML UDC PO SCH (09:36)
[2016-09-20] MEDS: Ondansetron ODT 4 MG TAB.RAPDIS PO PRN (09:47)
[2016-09-20] MEDS: Nystatin Cream 15 GM TUBE TP SCH ×3 (13:37→20:35)
--- NOTE | 2016-09-20 15:06 | Internal Med Progress Note ---
Date of Encounter: 09/20/16 Time of Encounter: 14:50 - Assessment and plan (1) Sepsis Current Visit: No Status: Acute Assessment and plan: September 13. Review of records show her pro-calcitonin was 1.32 which is in the intermediate range on 09/08/2016. Her WBC was subnormal but is now returned to normal range. There has not been documented a left shift on the differential. I will discontinue Ceftin. September 14. Remains stable off antibiotics. WBC was normal with no left shift seen on differential. September 16. We will recheck CBC in a.m. September 18. WBC was subnormal yesterday. We will recheck labs in a.m.. September 20. WBC and differential are normal Qualifiers: Sepsis type: sepsis due to unspecified organism Qualified Code(s): A41.9 - Sepsis, unspecified organism (2) Atrial fibrillation Current Visit: Yes Status: Chronic Assessment and plan: September 13. She has now converted to NSR. We will start low-dose Toprol-XL. September 14. Remains in NSR. Continue Toprol. September 16. We will increase Toprol dose to improve blood pressure September 18. Continue higher dose Toprol. September 20. Remains in normal sinus rhythm. Blood pressures are better controlled. Continue present dose Toprol Qualifiers: Atrial fibrillation type: paroxysmal Qualified Code(s): I48.0 - Paroxysmal atrial fibrillation (3) Chronic low back pain Current Visit: Yes Status: Chronic Assessment and plan: September 13. Will start low-dose OxyContin and continue with oxycodone IR when necessary September 14. Continue with oxycodone IR and will give scheduled Tylenol. September 16. We will discontinue OxyContin and continue scheduled Tylenol and prn oxycodone IR September 18. Continue scheduled Tylenol and prn oxycodone IR Qualifiers: Back pain laterality: unspecified Qualified Code(s): M54.5 - Low back pain ; G89.29 - Other chronic pain (4) Hypomagnesemia Current Visit: Yes Status: Acute Assessment and plan: September 13. Magnesium level was 1.2 in 09/08/2016. We will recheck in a.m. September 14. Magnesium level was low at 1.3. Will order supplemental magnesium. September 16. We will check magnesium level and other labs in a.m. September 18. We will recheck magnesium level in a.m. September 20. Magnesium level remains low at 1.2. We will increase magnesium supplement and decrease Bumex and Aldactone. (5) Hypokalemia Current Visit: Yes Status: Acute Assessment and plan: September 18. Will give supplemental potassium and recheck labs in a.m. September 20. Improved. Continue supplemental potassium and reduce diuretic dose (6) Anemia Current Visit: Yes Status: Acute Assessment and plan: September 18. We will check anemia testing in a.m. September 20. Serum iron is normal at 121 with ferritin 298. B12 was elevated at 1154 and folate low at 5.7. We will give supplemental folate Qualifiers: Anemia type: unspecified type Qualified Code(s): D64.9 - Anemia, unspecified (7) Hyperuricemia Current Visit: Yes Status: Acute Assessment and plan: September 20. Uric acid level was elevated at 7.4%. Will start allopurinol. - Subjective Interval history: September 13. She had SVT earlier this morning with some complaints of chest heaviness when her heart rate was approximately 170. She received Lanoxin, Adenocard, and Inderal. She is now in normal sinus rhythm. She has history of atrial fibrillation and had an echocardiogram done at [facility] prior to transfer to [facility] bed. I reviewed the results. She has minimal dyspnea at this time. She does complain of chronic low back pain and states she has been on oxycodone 3-4 times daily at home prior to hospitalizations. September 14. She has no new complaints. She has had no recurrence of SVT. She became confused after using OxyContin so it was discontinued. September 16. She has no new complaints. The staff reports she becomes more lethargic on a predictable basis as the day wears on. She denies significant pain or dyspnea at the present time. September 18. She has no new complaints September 20. She has no new complaints. Lethargy has resolved. - Constitutional Vitals: Temp Pulse Resp BP Pulse Ox 99.1 F 64 18 115/78 96 09/20/16 06:48 09/20/16 13:14 09/20/16 13:14 09/20/16 13:14 09/20/16 13:14 Exam: She is lying in bed resting comfortably. Heart is regular without murmurs gallops or ectopics. Lungs are clear anteriorly. Extremities show no edema. I reviewed her medications and lab results. Internal Medicine: Result - Labs CBC & Chem 7: 09/19/16 05:40 09/19/16 05:40 - ABG Interpretation ABG results: PT/INR, D-dimer PT 16.1 Seconds (9.4-12.1) H 09/12/16 05:13 - VTE Documentation of Mechanical Device: Intermittent pneumatic compression device Consult Discharge Plan - Plan Referrals: NO,PCP [Primary Care Provider] - 1 week
[2016-09-20] MEDS: *HR* OxyCODONE Immed Rel 5 MG TABLET PO PRN ×2 (18:27→23:54)
[2016-09-21] MEDS: *HR* OxyCODONE Immed Rel 5 MG TABLET PO PRN ×3 (03:57→16:57)
[2016-09-21] MEDS: Folic Acid 1 MG TABLET PO SCH (10:26)
[2016-09-21] MEDS: Lactulose Oral Soln 20 GM/30 ML UDC PO SCH (10:26)
[2016-09-21] MEDS: Fluconazole 100 MG TABLET PO SCH (10:26)
[2016-09-21] MEDS: Potassium Chloride Elixir 20 MEQ/15 ML UDC PO SCH ×2 (10:26→16:57)
[2016-09-21] MEDS: Metoprolol XL (24 HR) Succ 25 MG TAB.ER.24H PO SCH (10:27)
[2016-09-21] MEDS: Spironolactone 25 MG TABLET PO SCH (10:27)
[2016-09-21] MEDS: OLANZapine 5 MG TAB.RAPDIS PO SCH (10:27)
[2016-09-21] MEDS: Bumetanide 1 MG TABLET PO SCH (10:27)
[2016-09-21] MEDS: Cholecalciferol (D-3) 1,000 UNIT TABLET PO SCH (10:27)
[2016-09-21] MEDS: Nystatin Cream 15 GM TUBE TP SCH ×3 (10:28→21:20)
[2016-09-21] MEDS: Magnesium Oxide 400 MG TABLET PO SCH ×3 (10:28→21:20)
[2016-09-21] MEDS: Gabapentin 100 MG CAPSULE PO SCH ×3 (10:28→21:20)
[2016-09-22] MEDS: Lactulose Oral Soln 20 GM/30 ML UDC PO SCH (08:10)
[2016-09-22] MEDS: Potassium Chloride Elixir 20 MEQ/15 ML UDC PO SCH ×2 (08:10→17:00)
[2016-09-22] MEDS: Gabapentin 100 MG CAPSULE PO SCH ×2 (08:11→14:07)
[2016-09-22] MEDS: OLANZapine 5 MG TAB.RAPDIS PO SCH (08:11)
[2016-09-22] MEDS: Fluconazole 100 MG TABLET PO SCH (08:11)
[2016-09-22] MEDS: Metoprolol XL (24 HR) Succ 25 MG TAB.ER.24H PO SCH (08:12)
[2016-09-22] MEDS: Spironolactone 25 MG TABLET PO SCH (08:12)
[2016-09-22] MEDS: Bumetanide 1 MG TABLET PO SCH (08:12)
[2016-09-22] MEDS: Cholecalciferol (D-3) 1,000 UNIT TABLET PO SCH (08:21)
[2016-09-22] MEDS: Folic Acid 1 MG TABLET PO SCH (08:21)
[2016-09-22] MEDS: Magnesium Oxide 400 MG TABLET PO SCH ×3 (08:21→22:04)
[2016-09-22] MEDS: Nystatin Cream 15 GM TUBE TP SCH ×2 (08:21→14:08)
[2016-09-22] MEDS: *HR* OxyCODONE Immed Rel 5 MG TABLET PO PRN ×2 (14:08→22:04)
[2016-09-23] MEDS: Gabapentin 100 MG CAPSULE PO SCH ×2 (04:41→10:03)
[2016-09-23] MEDS: Nystatin Cream 15 GM TUBE TP SCH ×3 (04:41→15:02)
[2016-09-23 06:27] VITALS: BP 101/51
[2016-09-23] MEDS: Lactulose Oral Soln 20 GM/30 ML UDC PO SCH (10:02)
[2016-09-23] MEDS: Potassium Chloride Elixir 20 MEQ/15 ML UDC PO SCH (10:03)
[2016-09-23] MEDS: Spironolactone 25 MG TABLET PO SCH (10:05)
[2016-09-23] MEDS: Bumetanide 1 MG TABLET PO SCH (10:05)
[2016-09-23] MEDS: Metoprolol XL (24 HR) Succ 25 MG TAB.ER.24H PO SCH (10:06)
[2016-09-23] MEDS: Fluconazole 100 MG TABLET PO SCH (10:07)
[2016-09-23] MEDS: *HR* OxyCODONE Immed Rel 5 MG TABLET PO PRN ×2 (10:07→15:03)
[2016-09-23] MEDS: Folic Acid 1 MG TABLET PO SCH (10:09)
[2016-09-23] MEDS: Magnesium Oxide 400 MG TABLET PO SCH ×2 (10:09→15:02)
[2016-09-23] MEDS: OLANZapine 5 MG TAB.RAPDIS PO SCH (10:09)
[2016-09-23] MEDS: Cholecalciferol (D-3) 1,000 UNIT TABLET PO SCH (10:09)
--- NOTE | 2016-09-23 10:32 | Discharge Summary ---
Date of Encounter: 09/23/16 Time of Encounter: 10:20 - Discharge Diagnosis (1) Sepsis Priority: Primary Status: Resolved Qualifiers: Sepsis type: sepsis due to unspecified organism Qualified Code(s): A41.9 - Sepsis, unspecified organism (2) Atrial fibrillation Priority: Secondary Status: Chronic Qualifiers: Atrial fibrillation type: paroxysmal Qualified Code(s): I48.0 - Paroxysmal atrial fibrillation (3) Chronic low back pain Priority: Secondary Status: Chronic Qualifiers: Back pain laterality: unspecified Qualified Code(s): M54.5 - Low back pain ; G89.29 - Other chronic pain (4) Hypomagnesemia Priority: Secondary Status: Acute (5) Hypokalemia Priority: Secondary Status: Acute (6) Anemia Priority: Secondary Status: Acute Qualifiers: Anemia type: unspecified type Qualified Code(s): D64.9 - Anemia, unspecified (7) Hyperuricemia Priority: Secondary Status: Chronic - Discharge Medications Prescriptions: Albuterol Sulfate [Albuterol Inhaler] 2 puff IH Q6HR #1 inhaler Allopurinol [Zyloprim 100 MG] 200 mg PO DAILY #60 tablet Bumetanide [Bumex] 0.5 mg PO DAILY #15 tablet Folic Acid 1 mg PO DAILY #30 tablet Gabapentin [Gralise] 300 mg PO BID 365 Days Magnesium Oxide [Mag-Ox] 400 mg PO BID #60 tablet Metoprolol XL (24 HR) Succ [Toprol XL] 50 mg PO DAILY #30 tab.er.24h OLANZapine [Zyprexa Zydis] 5 mg PO DAILY #30 tab.rapdis Potassium Chloride Elixir [Potassium Chloride] 10 meq PO BIDWM #45 ml Spironolactone [Aldactone] 12.5 mg PO DAILY #15 tablet Home Medications: Clopidogrel [Plavix] 75 mg PO DAILY 09/06/16 [History] Dexilant 60 unit PO DAILY 09/06/16 [History] Ipratropium/Albuterol Neb [Duoneb] 1 aerosol IH Q6H 09/06/16 [History] Ondansetron [Zuplenz] 4 mg PO QAM 09/06/16 [History] Cholecalciferol (Vitamin D3) [Vitamin D3] 1,000 unit PO DAILY 09/07/16 [History] Lactulose 10 gm PO DAILY 09/07/16 [History] Memantine [Namenda] 5 mg PO HS 09/07/16 [History] Nystatin Cream [Mycostatin Cream] 1 appl TP TID 09/07/16 [History] Omeprazole [PriLOSEC] 20 mg PO DAILY 09/07/16 [History] LORazepam [Ativan] 0.5 mg PO TID PRN #20 09/10/16 [Rx] Oxycodone HCl 5 mg PO Q4H PRN #20 09/10/16 [Rx] Zinc Sulfate 220 mg PO DAILY #30 capsule 09/10/16 [Rx] Albuterol Sulfate [Albuterol Inhaler] 2 puff IH Q6HR #1 inhaler 09/23/16 [Rx] Allopurinol [Zyloprim 100 MG] 200 mg PO DAILY #60 tablet 09/23/16 [Rx] Bumetanide [Bumex] 0.5 mg PO DAILY #15 tablet 09/23/16 [Rx] Folic Acid 1 mg PO DAILY #30 tablet 09/23/16 [Rx] Gabapentin [Gralise] 300 mg PO BID 365 Days 09/23/16 [Rx] Magnesium Oxide [Mag-Ox] 400 mg PO BID #60 tablet 09/23/16 [Rx] Metoprolol XL (24 HR) Succ [Toprol XL] 50 mg PO DAILY #30 tab.er.24h 09/23/16 [ Rx] OLANZapine [Zyprexa Zydis] 5 mg PO DAILY #30 tab.rapdis 09/23/16 [Rx] Potassium Chloride Elixir [Potassium Chloride] 10 meq PO BIDWM #45 ml 09/23/16 [ Rx] Spironolactone [Aldactone] 12.5 mg PO DAILY #15 tablet 09/23/16 [Rx] Allergies/Adverse Reactions: Allergies Sulfa (Sulfonamide Antibiotics) Allergy (Verified 09/06/16 19:52) Anaphylaxis aspirin [ASA] Adverse Reaction (Verified 09/06/16 19:36) Nausea Erythromycin Base Adverse Reaction (Verified 09/06/16 19:52) Hives tramadol Adverse Reaction (Verified 09/06/16 19:36) Nausea Date of admission: 09/10/16 16:47 Primary care physician: PCP NO Consults: 09/10/16 18:10 Consult to Occupational Therapy [CONS] Routine Comment: Plan, develop, and implement POC. Consult to Physical Therapy [CONS] Routine Comment: Plan, Implement, and develop POC. Consult to Maintenance Work[employer] [CONS] Routine Reason for SW Consult: Possible ECF f/u and palliative. 09/10/16 18:13 Consult to Nutrition [CONS] Routine Comment: Consulting Provider: NUTRITION Reason for Dietary Consult: Supplemental Nutrition - Patient Status Disposition: Home, Self-Care Overall status at discharge: patient is progressing back to baseline - Discharge Instructions Follow Up With: NO,PCP [Primary Care Provider] - 1 week - Diet and Activity Activity: resume usual activities as tolerated Diet: advance to your usual diet Hospital course: Ms. Irwin is a 76 year old female who is admitted to [facility] swing bed after hospitalization at [facility] for sepsis. Dr. Montoya saw her on September 10 and performed history and physical. I assumed care on September 12. Her antibiotics were discontinued on September 13 and she remained stable for the remainder of her hospital course. She developed atrial fibrillation with RVR on September 13 but converted to normal sinus rhythm after administration of Toprol. Her Toprol dose will be 50 mg daily at discharge. Her blood pressure remained satisfactory. She had adequate pain control on scheduled Tylenol and prn oxycodone IR. These will be continued at discharge. She had hypomagnesemia with level 1.2 on 09/08/2016. She was started on supplemental magnesium. Her diuretic doses were decreased. I will let her primary care provider order follow-up labs for magnesium and potassium. Anemia testing showed folate low at 5.7. She will continue on supplemental folate at discharge. Uric acid level was elevated at 7.4%. She was started on allopurinol. Zyprexa dose was decreased and her mental status improved significantly. She was able to ambulate satisfactorily in the hallway. On September 23 she was stable for discharge home. She will follow with her PCP within one week. - Time Spent with Patient Total time spent providing and/or coordinating discharge services: - Constitutional Vitals: Temp Pulse Resp BP Pulse Ox 99.6 F 86 18 101/51 94 L 09/23/16 06:25 09/23/16 08:28 09/23/16 08:28 09/23/16 08:28 09/23/16 08:28 - VTE Documentation of Mechanical Device: Intermittent pneumatic compression device
== END 2016-09-23 16:25 | disposition home or self-care (01) | DRG 872 ==
LOC: INPPIK 16:47
PROVIDERS: ADMIT Internal Medicine; ATTEND Internal Medicine